=== PATIENT | female | born 1950 | race African-American/Black ===

== ENCOUNTER → 2019-01-22 | Outpatient (CLI) | payer MEDICARE, BC, MEDICAID ==
[~2019-01-22] MED LIST: ALBU6.7H INH; AMLO10TA4 PO; CIPR-263 PO; DOXY100C2 PO; ESOM20CA PO; HYDR25TA PO; LEVO50TA PO; LISI-604 PO; LORA10CA PO; MONT10TA21 PO; PARO10TA74 PO; ZOLP10TA2 PO
== END | disposition home or self-care (01) ==
LOC: US 08:08
DX: R10.31 Right lower quadrant pain (principal); Z90.710 Acquired absence of both cervix and uterus
CPT/HCPCS: 76830; 76856

== ENCOUNTER 2019-06-22 17:21 | Emergency (ER) | payer OTHER ==
[~2019-06-22] VITALS: Ht 170.2 cm; Wt 82.0 kg
[2019-06-22 17:27] VITALS: BP 116/80
[2019-06-22] MEDS ORDERED: ATOR40TA70 PO (17:33)
[2019-06-22] MEDS ORDERED: LISI-604 PO (17:33)
[2019-06-22] MEDS ORDERED: SPIR25TA6 PO (17:33)
== END 2019-06-22 18:31 | disposition home or self-care (01) ==
LOC: ER 17:21
DX: R05 Cough (principal); J45.909 Unspecified asthma, uncomplicated; I10 Essential (primary) hypertension; Z90.49 Acquired absence of other specified parts of digestive tract; Z87.891 Personal history of nicotine dependence; Z88.2 Allergy status to sulfonamides; Z88.0 Allergy status to penicillin; Z91.040 Latex allergy status; Z79.899 Other long term (current) drug therapy
CPT/HCPCS: 99282; 99283

== ENCOUNTER → 2019-09-21 | Outpatient (CLI) | payer MEDICARE, MEDICAID ==
[~2019-09-21] MED LIST changes: -ALBU6.7H INH; +ALBU6.7H11 INH; +ATOR40TA70 PO; +SPIR25TA6 PO
== END | disposition home or self-care (01) ==
LOC: NM 09:26
PROVIDERS: ATTEND Internal Medicine Gastroenterology
DX: K31.84 Gastroparesis (principal)
CPT/HCPCS: 78265; A9541

== ENCOUNTER 2019-10-15 19:26 | Emergency (ER) | payer MEDICARE, MEDICAID ==
[~2019-10-15] VITALS: Ht 170.2 cm; Wt 75.0 kg
[~2019-10-15 19:26] MED LIST changes: -BARIUM SULFATE 450ML ORAL SUSP ONE; -IOHEXOL-300 100 ML BOTTLE ONE
[2019-10-15] MEDS ORDERED: KETOROLAC 30MG/ML VIAL IV STA (20:38)
[2019-10-15] MEDS ORDERED: ONDANSETRON HCL 4MG/2ML INJ IV STA (20:38)
[2019-10-15] MEDS ORDERED: SODIUM CHLORIDE 0.9% 1,000 ML IV ONE (20:38)
[2019-10-15] MEDS ORDERED: FAMOTIDINE 20MG/2ML VIAL IV ONE (20:45)
[2019-10-15] MEDS ORDERED: VISCOUS LIDOCAINE 2% 15 ML UDC PO ONE (20:45)
[2019-10-15] MEDS ORDERED: MAGNESIUM/ALUMINUM HYDROXIDE/SIMETHICONE 30ML UDC PO ONE (20:45)
[2019-10-15 21:05] LABS: BASOPHILS % 1.1 % (0.0-2.0); CHLORIDE 104 mEq/L (98-107); EOSINOPHILS % 0.6 % (0.0-5.0); HEMATOCRIT. 43.1 % (36.0-48.0); HEMOGLOBIN. 14.5 g/dL (12.0-16.0); LYMPHOCYTES % 24.9 % (20.0-50.0); MEAN CORPUSCULAR HEMOGLOBIN 29.1 pg (28.0-32.0); MEAN CORPUSCULAR VOLUME 86.5 fL (81.0-99.0); MEAN PLATELET VOLUME 10.1 fl (7.4-10.4); MONOCYTES % 7.4 % (2.0-8.0); PLATELET 131 x1000/uL (130-400); RED BLOOD CELL COUNT 4.98 mill/uL (4.2-5.4); RED CELL DISTRIBUTION WIDTH 14.1 % (11.6-14.6)
[2019-10-15 21:08] LABS: ETHANOL BLOOD < 10 mg/dL
[2019-10-15 21:16] LABS: *AMPHETAMINES SCREEN URINE NEGATIVE (NEGATIVE)
[2019-10-15 21:18] LABS: *BARBITURATES SCREEN URINE NEGATIVE (NEGATIVE); *BENZODIAZEPINES SCREEN URINE NEGATIVE (NEGATIVE); *COCAINE SCREEN URINE NEGATIVE (NEGATIVE); CANNABINOID URINE SCREEN NEGATIVE (NEGATIVE); METHADONE URINE SCREEN NEGATIVE (NEGATIVE); PHENCYCLIDINE URINE SCREEN NEGATIVE (NEGATIVE)
[2019-10-15] MEDS ORDERED: ONDANSETRON HCL 4MG/2ML INJ IV ONE ×2 (23:15)
[2019-10-15 23:19] VITALS: BP 113/57
[2019-10-19 17:56] LABS: OPIATES URINE SCREEN NEGATIVE (NEGATIVE)
== END 2019-10-16 00:18 | disposition home or self-care (01) ==
LOC: ER 19:26
DX: K29.00 Acute gastritis without bleeding (principal); K21.9 Gastro-esophageal reflux disease without esophagitis; E78.00 Pure hypercholesterolemia, unspecified; I10 Essential (primary) hypertension; E03.9 Hypothyroidism, unspecified; Z90.49 Acquired absence of other specified parts of digestive tract; Z98.890 Other specified postprocedural states; Z88.2 Allergy status to sulfonamides; Z88.0 Allergy status to penicillin; Z79.899 Other long term (current) drug therapy; Z91.040 Latex allergy status
CPT/HCPCS: 36415; 71045; 80053; 80305; 80320; 83690; 83880; 84484; 85025; 93005; 96361; 96374; 96375; 96376; 99285; J1885; J2405; J3490; J7030; G0480

== ENCOUNTER → 2019-10-15 | Outpatient (CLI) | payer MEDICARE, MEDICAID ==
[~2019-10-15] MED LIST changes: +BARIUM SULFATE 450ML ORAL SUSP ONE; +IOHEXOL-300 100 ML BOTTLE ONE
== END | disposition home or self-care (01) ==
LOC: CT 08:32
PROVIDERS: ATTEND Internal Medicine Gastroenterology
DX: K44.9 Diaphragmatic hernia without obstruction or gangrene (principal); K57.30 Diverticulosis of large intestine without perforation or abscess without bleeding; K76.89 Other specified diseases of liver; J43.9 Emphysema, unspecified
CPT/HCPCS: 74177; Q9967

== ENCOUNTER → 2020-02-18 | Outpatient (CLI) | payer MEDICARE, MEDICAID ==
[~2020-02-18] MED LIST changes: +ALBU90AE INH; +PARO10TA87 PO; +PROT20 PO
== END | disposition home or self-care (01) ==
LOC: RAD 13:16
PROVIDERS: ATTEND Internal Medicine Geriatric Medicine
DX: Z01.818 Encounter for other preprocedural examination (principal); J98.11 Atelectasis; K44.9 Diaphragmatic hernia without obstruction or gangrene
CPT/HCPCS: 71046

== ENCOUNTER → 2020-02-26 | Outpatient (CLI) | payer MEDICARE, MEDICAID ==
[~2020-02-26] MED LIST changes: -ALBU90AE INH
== END | disposition home or self-care (01) ==
LOC: LAB 09:04
PROVIDERS: ATTEND Surgery
DX: Z01.818 Encounter for other preprocedural examination (principal); Z11.59 Encounter for screening for other viral diseases
CPT/HCPCS: C9803; U0003

== ENCOUNTER 2020-03-01 05:30 | Inpatient (IN) | payer MEDICARE, MEDICAID ==
[~2020-03-01] VITALS: Ht 170.2 cm; Wt 65.8 kg
[~2020-03-01 05:30] MED LIST changes: +LACTATED RINGERS 1,000 ML IV SCH
[2020-03-01 06:31] LABS: CLARITY URINE CLEAR (CLEAR); COLOR URINE DARK YELLOW (YELLOW); KETONES URINE TRACE (NEGATIVE); LEUKOCYTE ESTERASE URINE TRACE (NEGATIVE); NITRITE URINE NEGATIVE (NEGATIVE); OCCULT BLOOD URINE NEGATIVE (NEGATIVE); PH URINE 5.5 (4.5-8.0); PROTEIN URINE 1+ (NEGATIVE)
[2020-03-01] MEDS ORDERED: METRONIDAZOLE 500 MG PREMIX 100 ML IV ONE (06:48)
[2020-03-01] MEDS ORDERED: LEVOFLOXACIN 500MG PREMIX 100 ML IV ONE (06:48)
[2020-03-01] MEDS ORDERED: CLINDAMYCIN 900 MG PREMIX 0 ML IV ONE (06:48)
[2020-03-01] MEDS ORDERED: BUPIVACAINE HCL 0.5% (5MG/ML) 50ML ONE (06:49)
[2020-03-01] MEDS ORDERED: BACITRACIN 50,000 UNITS/VIAL ONE (06:49)
[2020-03-01 07:17] LABS: INR 1.1; PARTIAL THROMBOPLASTIN TIME 28.2 sec (23.4-31.0); PROTHROMBIN TIME 11.4 sec (9.6-11.0)
[2020-03-01] MEDS: METRONIDAZOLE 500 MG PREMIX 100 ML IV SCH (07:30)
[2020-03-01] MEDS ORDERED: MORPHINE SULFATE 4 MG/ML CPJ (NOT FOR IM USE) IV PRN (07:30)
[2020-03-01] MEDS ORDERED: MORPHINE SULFATE 2 MG/ML CPJ (NOT FOR IM USE) IV PRN (07:30)
[2020-03-01] MEDS ORDERED: ACETAMINOPHEN 650MG SUPP PR PRN (07:30)
[2020-03-01] MEDS ORDERED: LEVOFLOXACIN 500MG PREMIX 100 ML IV SCH (07:30)
[2020-03-01] MEDS ORDERED: PROPOFOL 200MG/20ML VIAL IV ONE (07:34)
[2020-03-01] MEDS ORDERED: ROCURONIUM BROMIDE 10MG/ML VIAL 5ML IV ONE (07:34)
[2020-03-01] MEDS ORDERED: DEXAMETHASONE 4MG/ML 1ML VIAL ONE (07:44)
[2020-03-01] MEDS ORDERED: EPHEDRINE SULFATE 50MG/ML VIAL ONE (07:48)
[2020-03-01] MEDS ORDERED: HYDROMORPHONE HCL/PF 2MG/ML (OR) ONE (07:48)
[2020-03-01] MEDS ORDERED: GLYCOPYRROLATE 0.2 MG/ML 2ML VIAL ONE ×2 (08:00→08:46)
[2020-03-01] MEDS ORDERED: METOPROLOL TARTRATE 5MG/5ML VIAL IV ONE (08:26)
[2020-03-01] MEDS ORDERED: NEOSTIGMINE METHYLSULFATE 1MG/ML 10 ML VIAL ONE (08:45)
[2020-03-01] MEDS ORDERED: MEPERIDINE HCL/PF 25MG/ML CPJ IV PRN (09:15)
[2020-03-01] MEDS ORDERED: LABETALOL 5MG/ML SYR 20 MG/4 ML SYRINGE IV PRN (09:15)
[2020-03-01] MEDS: BUPIVACAINE HCL 0.5% 290 ML in ON-Q PM015 DRUG DELIV DEVICE 1 EA IR NR (09:26)
[2020-03-01] MEDS: ONDANSETRON HCL 4MG/2ML INJ IV PRN ×5 (10:59→14:25)
[2020-03-01] MEDS: HYDROMORPHONE HCL/PF 2MG/ML CPJ IV PRN ×3 (11:03→12:34)
[2020-03-01] MEDS ORDERED: FAMOTIDINE 20MG/2ML VIAL IV SCH (11:45)
[2020-03-01] MEDS ORDERED: ALBU90AE INH (12:01)
[2020-03-01 16:00] VITALS: BP 161/77
[2020-03-01 18:57] VITALS: BP 114/70
[2020-03-01 20:00] VITALS: BP 128/63
[2020-03-02] VITALS: BP 134/65
[2020-03-02] MEDS: METRONIDAZOLE 500 MG PREMIX 100 ML IV SCH (01:09)
[2020-03-02 04:00] VITALS: BP 127/58
[2020-03-02 06:28] LABS: CHLORIDE 109 mEq/L (98-107)
[2020-03-02 06:47] LABS: HEMATOCRIT. 37.7 % (36.0-48.0); HEMOGLOBIN. 12.3 g/dL (12.0-16.0); MEAN CORPUSCULAR HEMOGLOBIN 27.8 pg (28.0-32.0); MEAN CORPUSCULAR VOLUME 85.2 fL (81.0-99.0); PLATELET 137 x1000/uL (130-400); RED BLOOD CELL COUNT 4.43 mill/uL (4.2-5.4)
[2020-03-02 08:00] VITALS: BP 117/59
[2020-03-02] MEDS: FAMOTIDINE 20MG/2ML VIAL IV SCH ×2 (08:49→23:11)
[2020-03-02] MEDS: BUPIVACAINE HCL 0.5% 290 ML in ON-Q PM015 DRUG DELIV DEVICE 1 EA IR NR (10:10)
[2020-03-02 12:00] VITALS: BP 126/49
[2020-03-02] MEDS: DEXT 5%/0.45% NACL KCL 20MEQ/L 1,000 ML IV SCH ×2 (13:16→23:48)
[2020-03-02 16:00] VITALS: BP 129/61
[2020-03-02 16:59] LABS: PLATELET ESTIMATE NORMAL
[2020-03-02 20:00] VITALS: BP 139/46
[2020-03-03] VITALS: BP 133/46
[2020-03-03 04:00] VITALS: BP 132/70
[2020-03-03 08:00] VITALS: BP 137/59
[2020-03-03] MEDS: FAMOTIDINE 20MG/2ML VIAL IV SCH ×2 (08:15→20:53)
[2020-03-03] MEDS: BUPIVACAINE HCL 0.5% 290 ML in ON-Q PM015 DRUG DELIV DEVICE 1 EA IR NR (09:50)
[2020-03-03 12:00] VITALS: BP 153/71
[2020-03-03] MEDS: LISINOPRIL 20MG TABLET PO SCH (14:33)
[2020-03-03] MEDS: HYDROCHLOROTHIAZIDE 25MG TABLET PO SCH (14:33)
[2020-03-03 16:00] VITALS: BP 100/61
[2020-03-03 20:00] VITALS: BP 144/66
[2020-03-03] MEDS ORDERED: MONTELUKAST SODIUM 10MG TABLET PO SCH (21:00)
[2020-03-03] MEDS ORDERED: ATORVASTATIN CALCIUM 40MG TABLET PO SCH (21:00)
[2020-03-04] VITALS: BP 140/65
[2020-03-04 04:00] VITALS: BP 127/63
[2020-03-04] MEDS ORDERED: LEVOTHYROXINE SODIUM 50MCG TABLET PO SCH (07:20)
[2020-03-04 08:00] VITALS: BP 138/71
[2020-03-04] MEDS ORDERED: AMLODIPINE 10MG TABLET PO SCH (09:00)
[2020-03-04] MEDS ORDERED: PAROXETINE HCL 10MG TABLET PO SCH (09:00)
[2020-03-04] MEDS ORDERED: SPIRONOLACTONE 25MG TABLET PO SCH (09:00)
[2020-03-04] MEDS: FAMOTIDINE 20MG/2ML VIAL IV SCH (09:24)
[2020-03-04] MEDS: HYDROCHLOROTHIAZIDE 25MG TABLET PO SCH (09:24)
[2020-03-04] MEDS: LISINOPRIL 20MG TABLET PO SCH (09:24)
[2020-03-04 12:00] VITALS: BP 146/68
[2020-03-04 14:56] VITALS: BP 146/68
== END 2020-03-04 15:53 | disposition home or self-care (01) | DRG 328 ==
LOC: OR 05:30 → 6EST 05:31
PROVIDERS: ADMIT Surgery; ATTEND Surgery
PROC: 0BQT0ZZ Repair Diaphragm, Open Approach (ICD-10-PCS; principal; 2020-03-01)
PROC: 0DQ40ZZ Repair Esophagogastric Junction, Open Approach (ICD-10-PCS; 2020-03-01)
DX: K44.9 Diaphragmatic hernia without obstruction or gangrene (principal); R47.02 Dysphasia; K21.9 Gastro-esophageal reflux disease without esophagitis; E03.9 Hypothyroidism, unspecified; I50.9 Heart failure, unspecified; I11.0 Hypertensive heart disease with heart failure; Z90.710 Acquired absence of both cervix and uterus; K20.9 Esophagitis, unspecified
CPT/HCPCS: 36415; 80048; 81003; 85025; 86850; 86900; 97162; J1100; J1170; J1956; J2405; J2704; J2710; J3490

== ENCOUNTER 2020-05-20 09:56 | Emergency (ER) | payer MEDICARE, MEDICAID ==
[~2020-05-20] VITALS: Ht 170.2 cm; Wt 67.0 kg
[~2020-05-20 09:56] MED LIST changes: -ALBU6.7H11 INH; +ALBU90AE INH; -LACTATED RINGERS 1,000 ML IV SCH; -PARO10TA87 PO
[2020-05-20 11:48] LABS: BASOPHILS % 0.4 % (0.0-2.0); EOSINOPHILS % 2.2 % (0.0-5.0); HEMATOCRIT. 38.9 % (36.0-48.0); HEMOGLOBIN. 12.8 g/dL (12.0-16.0); LYMPHOCYTES % 24.3 % (20.0-50.0); MEAN CORPUSCULAR HEMOGLOBIN 27.2 pg (28.0-32.0); MEAN CORPUSCULAR VOLUME 82.8 fL (81.0-99.0); MEAN PLATELET VOLUME 9.7 fl (7.4-10.4); MONOCYTES % 5.9 % (2.0-8.0); NEUTROPHILS % 67.2 % (40.0-76.0); PLATELET 130 x1000/uL (130-400); RED CELL DISTRIBUTION WIDTH 14.4 % (11.6-14.6)
[2020-05-20 11:50] LABS: CHLORIDE 113 mEq/L (98-107)
[2020-05-20 11:56] LABS: ETHANOL BLOOD < 10 mg/dL
[2020-05-20 12:34] LABS: CLARITY URINE CLEAR (CLEAR); COLOR URINE YELLOW (YELLOW); KETONES URINE NEGATIVE (NEGATIVE); LEUKOCYTE ESTERASE URINE NEGATIVE (NEGATIVE); NITRITE URINE NEGATIVE (NEGATIVE); OCCULT BLOOD URINE NEGATIVE (NEGATIVE); PH URINE 7.5 (4.5-8.0); PROTEIN URINE NEGATIVE (NEGATIVE); SPECIFIC GRAVITY URINE 1.018 (1.005-1.030)
[2020-05-20] MEDS ORDERED: CLONIDINE 0.1MG TABLET PO ONE (12:45)
[2020-05-20 12:48] LABS: *AMPHETAMINES SCREEN URINE NEGATIVE (NEGATIVE); *BARBITURATES SCREEN URINE NEGATIVE (NEGATIVE); *BENZODIAZEPINES SCREEN URINE NEGATIVE (NEGATIVE)
[2020-05-20 12:49] LABS: *COCAINE SCREEN URINE NEGATIVE (NEGATIVE); CANNABINOID URINE SCREEN NEGATIVE (NEGATIVE); METHADONE URINE SCREEN NEGATIVE (NEGATIVE); OPIATES URINE SCREEN NEGATIVE (NEGATIVE); PHENCYCLIDINE URINE SCREEN NEGATIVE (NEGATIVE)
[2020-05-20 13:40] VITALS: BP 150/78
== END 2020-05-20 13:43 | disposition home or self-care (01) ==
LOC: ER 09:56
DX: R51.9 Headache, unspecified (principal); I10 Essential (primary) hypertension; E78.00 Pure hypercholesterolemia, unspecified; Z88.2 Allergy status to sulfonamides; Z88.0 Allergy status to penicillin; Z91.040 Latex allergy status
CPT/HCPCS: 36415; 80053; 80305; 80320; 81003; 84484; 85025; 93005; 99285; G0480

== ENCOUNTER 2020-06-13 10:16 | Emergency (ER) | payer MEDICARE, MEDICAID ==
[~2020-06-13] VITALS: Ht 170.2 cm; Wt 66.0 kg
[2020-06-13] MEDS ORDERED: ACETAMINOPHEN 325MG TABLET PO ONE (10:45)
[2020-06-13 11:47] VITALS: BP 150/78
== END 2020-06-13 12:26 | disposition home or self-care (01) ==
LOC: ER 10:30
DX: S50.02XA Contusion of left elbow, initial encounter (principal); S70.02XA Contusion of left hip, initial encounter; S30.0XXA Contusion of lower back and pelvis, initial encounter; W10.8XXA Fall (on) (from) other stairs and steps, initial encounter; Y93.01 Activity, walking, marching and hiking; Y92.511 Restaurant or cafe as the place of occurrence of the external cause; I11.0 Hypertensive heart disease with heart failure; I50.9 Heart failure, unspecified; Z91.040 Latex allergy status; Z91.011 Allergy to milk products; Z91.010 Allergy to peanuts; Z88.2 Allergy status to sulfonamides; Z79.899 Other long term (current) drug therapy
CPT/HCPCS: 29105; 72100; 73080; 73502; 99284; A4565

== ENCOUNTER 2023-01-01 16:16 | Emergency (ER) | payer MEDICARE, MEDICAID ==
[~2023-01-01] VITALS: Ht 172.7 cm; Wt 70.0 kg
[~2023-01-01 16:16] MED LIST changes: -DOXY100C2 PO; +DOXY100C5 PO; -LISI-604 PO; +LISI20TA31 PO; +MONT-46 PO; -MONT10TA21 PO
[2023-01-01 16:23] VITALS: BP 128/63
== END 2023-01-01 18:23 | disposition home or self-care (01) ==
LOC: ER 16:16
DX: I10 Essential (primary) hypertension (principal); J45.909 Unspecified asthma, uncomplicated; Z88.1 Allergy status to other antibiotic agents; Z88.0 Allergy status to penicillin; Z91.040 Latex allergy status; Z79.899 Other long term (current) drug therapy
CPT/HCPCS: 99281

== ENCOUNTER 2024-01-22 15:13 | Emergency (ER) | payer BC, MEDICAID ==
[~2024-01-22] VITALS: Ht 170.2 cm; Wt 62.0 kg
[2024-01-22 15:42] VITALS: O2SAT 99
[2024-01-22] MEDS: ACETAMINOPHEN 325MG TABLET PO ONE (16:44)
[2024-01-22] MEDS ORDERED: LIDO700A15 TP (17:04)
[2024-01-22] MEDS ORDERED: NAPR-1176 MT (17:04)
[2024-01-22 17:10] VITALS: BP 120/84; PULSE 68; RESP 18; TEMP 98.2
== END 2024-01-22 17:14 | disposition home or self-care (01) ==
LOC: ER 15:13
DX: S00.531A Contusion of lip, initial encounter (principal); M25.531 Pain in right wrist; I10 Essential (primary) hypertension; J45.909 Unspecified asthma, uncomplicated; Z88.0 Allergy status to penicillin; Z88.2 Allergy status to sulfonamides; Z91.040 Latex allergy status; Z79.899 Other long term (current) drug therapy; Z98.890 Other specified postprocedural states; W03.XXXA Other fall on same level due to collision with another person, initial encounter; Y93.89 Activity, other specified; Y92.89 Other specified places as the place of occurrence of the external cause; Y99.8 Other external cause status
CPT/HCPCS: 73110; 99283

== ENCOUNTER 2024-01-24 09:01 | Emergency (ER) | payer BC, MEDICAID ==
[~2024-01-24] VITALS: Ht 170.2 cm; Wt 59.0 kg
[~2024-01-24 09:01] MED LIST changes: +LIDO700A15 TP; +NAPR-1176 MT
[2024-01-24 09:10] VITALS: O2SAT 99
[2024-01-24] MEDS: IBUPROFEN 600MG TABLET PO ONE (10:06)
[2024-01-24] MEDS ORDERED: IBUP-2029 MT (10:26)
[2024-01-24 10:43] VITALS: BP 137/62; PULSE 62; RESP 18; TEMP 98.7
== END 2024-01-24 10:44 | disposition home or self-care (01) ==
LOC: ER 09:01
DX: S22.31XA Fracture of one rib, right side, initial encounter for closed fracture (principal); S27.9XXA Injury of unspecified intrathoracic organ, initial encounter; J45.909 Unspecified asthma, uncomplicated; I10 Essential (primary) hypertension; Z88.0 Allergy status to penicillin; Z91.040 Latex allergy status; Z88.2 Allergy status to sulfonamides; Z79.899 Other long term (current) drug therapy; Z98.890 Other specified postprocedural states; W18.30XA Fall on same level, unspecified, initial encounter; Y93.89 Activity, other specified; Y92.89 Other specified places as the place of occurrence of the external cause; Y99.8 Other external cause status
CPT/HCPCS: 71100; 99283

== ENCOUNTER 2024-06-02 16:39 | Emergency (ER) | payer BC, MEDICAID ==
[~2024-06-02] VITALS: Ht 172.7 cm; Wt 59.0 kg
[~2024-06-02 16:39] MED LIST changes: +IBUP-2029 MT
[2024-06-02 16:53] VITALS: O2SAT 100
[2024-06-02] MEDS ORDERED: IBUPROFEN 600MG TABLET PO STA (18:14)
[2024-06-02 18:46] LABS: CLARITY URINE CLEAR (CLEAR); COLOR URINE YELLOW (YELLOW); GLUCOSE URINE NEGATIVE (NEGATIVE); KETONES URINE NEGATIVE (NEGATIVE); LEUKOCYTE ESTERASE URINE NEGATIVE (NEGATIVE); NITRITE URINE NEGATIVE (NEGATIVE); OCCULT BLOOD URINE NEGATIVE (NEGATIVE); PROTEIN URINE NEGATIVE (NEGATIVE); SPECIFIC GRAVITY URINE 1.003 (1.005-1.030); UROBILINOGEN URINE 0.2 E.U./dL (0.2-1.0)
[2024-06-02 19:02] LABS: BASOPHILS % 0.2 % (0.0-2.0); EOSINOPHILS % 0.5 % (0.0-5.0); HEMOGLOBIN. 13.4 g/dL (12.0-16.0); LYMPHOCYTES % 20.6 % (20.0-50.0); MEAN CORPUSCULAR HEMOGLOBIN 28.8 pg (28.0-32.0); MEAN CORPUSCULAR HGB CONC 33.6 g/dL (31.0-37.0); MEAN CORPUSCULAR VOLUME 85.8 fL (81.0-99.0); MONOCYTES % 6.3 % (2.0-8.0); NEUTROPHILS % 72.4 % (40.0-76.0); PLATELET 137 x1000/uL (130-400); RED BLOOD CELL COUNT 4.67 mill/uL (4.2-5.4)
[2024-06-02 19:10] LABS: CHLORIDE 103 mEq/L (98-107); POTASSIUM 3.7 mEq/L (3.5-5.1); SODIUM 135 mEq/L (136-145)
[2024-06-02 19:11] LABS: CALCIUM 9.4 mg/dL (8.7-10.4); CARBON DIOXIDE 26 mEq/L (21-32)
[2024-06-02 19:16] LABS: GLUCOSE 83 mg/dL (70-105); UREA NITROGEN BLOOD 12 mg/dL (9-23)
[2024-06-02 19:18] LABS: ALANINE AMINOTRANSFERASE 20 IU/L (10-49); ALBUMIN 4.1 g/dL (3.2-4.8); ASPARTATE AMINOTRANSFERASE 25 IU/L (<34); BILIRUBIN TOTAL 0.7 mg/dL (0.1-1.0); PROTEIN TOTAL 7.1 g/dL (6.0-8.3)
[2024-06-02] MEDS: IBUPROFEN 600MG TABLET PO NR (19:58)
[2024-06-02 20:01] VITALS: BP 139/61; PULSE 69; RESP 19; TEMP 36.89184; O2SAT 98
== END 2024-06-02 20:07 | disposition home or self-care (01) ==
LOC: ER 16:39
DX: R10.9 Unspecified abdominal pain (principal); I10 Essential (primary) hypertension; Z88.2 Allergy status to sulfonamides; Z88.0 Allergy status to penicillin; Z79.899 Other long term (current) drug therapy; Z90.710 Acquired absence of both cervix and uterus; Z91.040 Latex allergy status
CPT/HCPCS: 36415; 74176; 80053; 81003; 85025; 99284

== ENCOUNTER 2024-07-28 09:10 | Emergency (ER) | payer BC, MEDICAID ==
[~2024-07-28] VITALS: Ht 170.2 cm; Wt 58.9 kg
[2024-07-28 09:12] VITALS: O2SAT 98
[2024-07-28 09:23] VITALS: BP 131/65; PULSE 82; RESP 16; TEMP 98.6; O2SAT 99
== END 2024-07-28 13:37 | disposition home or self-care (01) ==
LOC: ER 09:10
DX: S27.0XXA Traumatic pneumothorax, initial encounter (principal); J45.909 Unspecified asthma, uncomplicated; I10 Essential (primary) hypertension; Z79.899 Other long term (current) drug therapy; Z90.49 Acquired absence of other specified parts of digestive tract; Z90.710 Acquired absence of both cervix and uterus; Z88.0 Allergy status to penicillin; Z88.2 Allergy status to sulfonamides; X58.XXXA Exposure to other specified factors, initial encounter; Y93.89 Activity, other specified; Y92.89 Other specified places as the place of occurrence of the external cause; Y99.8 Other external cause status
CPT/HCPCS: 71101; 99283

== ENCOUNTER 2024-11-22 08:13 | Emergency (ER) | payer BC, MEDICAID ==
[~2024-11-22] VITALS: Ht 165.1 cm; Wt 60.0 kg
[~2024-11-22 08:13] MED LIST changes: +AMLO-905 PO; -AMLO10TA4 PO
[2024-11-22 08:17] VITALS: O2SAT 99
[2024-11-22 08:55] LABS: CHLORIDE 111 mEq/L (98-107); POTASSIUM 3.6 mEq/L (3.5-5.1)
[2024-11-22 08:56] LABS: CARBON DIOXIDE 26 mEq/L (21-32); SODIUM 143 mEq/L (136-145)
[2024-11-22 08:57] LABS: CALCIUM 9.5 mg/dL (8.7-10.4)
[2024-11-22 09:02] LABS: CREATININE 0.9 mg/dL (0.6-1.0); GLUCOSE 104 mg/dL (70-105); UREA NITROGEN BLOOD 13 mg/dL (9-23)
[2024-11-22 09:04] LABS: TROPONIN I HIGH SENSITIVITY 11 ng/L (3.0-34)
[2024-11-22 09:09] LABS: THYROID STIMULATING HORMONE 0.86 uIU/mL (0.55-4.78)
[2024-11-22 09:22] LABS: BASOPHILS % 0.2 % (0.0-2.0); EOSINOPHILS % 0.9 % (0.0-5.0); HEMATOCRIT. 40.9 % (36.0-48.0); HEMOGLOBIN. 13.3 g/dL (12.0-16.0); LYMPHOCYTES % 17.8 % (20.0-50.0); MEAN CORPUSCULAR HEMOGLOBIN 27.6 pg (28.0-32.0); MEAN CORPUSCULAR HGB CONC 32.4 g/dL (31.0-37.0); MEAN CORPUSCULAR VOLUME 85.2 fL (81.0-99.0); MEAN PLATELET VOLUME 9.5 fl (7.4-10.4); MONOCYTES % 6.1 % (2.0-8.0); PLATELET 127 x1000/uL (130-400); WHITE BLOOD COUNT 6.4 x1000/uL (4.5-11.0)
[2024-11-22 12:08] LABS: TROPONIN I HIGH SENSITIVITY 9 ng/L (3.0-34)
[2024-11-22 13:09] VITALS: BP 146/62; PULSE 64; RESP 15; TEMP 36.4; O2SAT 100
== END 2024-11-22 13:12 | disposition home or self-care (01) ==
LOC: ER 08:42 → CANBEDREQ 12:30 → ER 13:12
DX: R00.2 Palpitations (principal); I10 Essential (primary) hypertension; J45.909 Unspecified asthma, uncomplicated; F10.90 Alcohol use, unspecified, uncomplicated; Z79.1 Long term (current) use of non-steroidal anti-inflammatories (NSAID); Z79.890 Hormone replacement therapy; Z79.899 Other long term (current) drug therapy; Z88.0 Allergy status to penicillin; Z88.2 Allergy status to sulfonamides; Z90.49 Acquired absence of other specified parts of digestive tract; Z90.710 Acquired absence of both cervix and uterus; Y90.9 Presence of alcohol in blood, level not specified
CPT/HCPCS: 36415; 71045; 80048; 83880; 84443; 84484; 85025; 93005; 99285